=== PATIENT | female | born 1995 | race Two or more races ===

== ENCOUNTER 2024-07-14 15:40 | Emergency (ER) | payer MEDICAID, SELFPAY ==
[2024-07-14 15:41] VITALS: BMI 32.9
--- NOTE | 2024-07-14 15:47 | XR_ITS ---
Examination: CT brain head without contrast. 2-D sagittal coronal reconstructions Date and time of exam:July 14, 2024 at 1633 hours INDICATIONS: Onset posterior headaches today CTDI: vol (mGy):48.8 DLP: (mGycm):983 Technique: Multiple CT axial sections of the brain have been obtained, 5 mm slice thickness. Contrast has not been administered. 2-D sagittal, coronal reconstructions have been obtained Low dose protocols were performed. One or more of the following dose reduction techniques were used; automated exposure control, adjustment of the mA and/or KV according to patient size, use of iterative reconstruction technique. Findings: No significant ventricular enlargement. Intra-axial or extra-axial hemorrhage density is not seen. No mass effect or midline shift Basal cisterns are not remarkable. Fourth ventricle is midline. Cranial vault intact. Impression: Negative for acute hemorrhage, mass effect or midline shift Chronic maxillary sinusitis If new onset headaches persist, consider brain MRI follow-up
--- NOTE | 2024-07-14 15:47 | PD.EDRME ---
Rapid Medical Screening Exam RME Arrival date/time: 07/14/24 15:40 29-year-old female presents emergency department complaint of left-sided headache patient reports ongoing for last few days patient with history of Chiari malformation Chief Complaint: Headache Time Seen by Provider: 07/14/24 15:41
[2024-07-14 15:55] VITALS: BP 125/88; PULSE 98; RESP 18; TEMP 36.6; O2SAT 97
[2024-07-14 16:51] LABS: Basophils # (Auto) 0.1 Thou/mm3 (0.0-0.2); Basophils % (Auto) 1 % (0-2.5); Eosinophils # (Auto) 0.5 Thou/mm3 (0.0-0.5); Eosinophils % (Auto) 3 % (0-10); Hematocrit 43.4 % (36.0-46.0); Hemoglobin 14.6 g/dL (12.0-16.0); Immature Granulocytes % (Auto) 1 % (0-0); Immature Granulocytes Auto 0.09 Thou/mm3 (0.00-0.00); Lymphocytes # (Auto) 2.1 Thou/mm3 (1.0-4.8); Lymphocytes % (Auto) 11 % (10-50); Mean Corpuscular HGB Conc 33.6 g/dl (31.0-37.0); Mean Corpuscular Hemoglobin 28.4 pg (25.0-35.0); Mean Corpuscular Volume 84 fL (80-100); Monocytes # (Auto) 0.9 Thou/mm3 (0.0-0.8); Monocytes % (Auto) 4 % (0-12); Neutrophils % (Auto) 81 % (37-80); Nucleated Red Blood Cell % 0 /100 WBC (0); Platelet Count 257 Thou/mm3 (140-440); RDW Standard Deviation 38.5 fL (36.4-46.3); Red Blood Count 5.14 Miln/mm3 (4.00-5.20); White Blood Count 19.6 Thou/mm3 (3.6-11.0)
[2024-07-14 17:23] LABS: Alanine Aminotransferase 15 U/L (10-49); Albumin, Serum 4.9 gm/dL (3.5-5.0); Albumin/Globulin Ratio 1.6 (1.2-2.2); Alkaline Phosphatase 104 U/L (46-116); Anion Gap 9 (7-16); Aspartate Amino Transferase 17 U/L (0-34); BUN/Creatinine Ratio 11 Ratio (12-20); Bilirubin,Total 0.5 mg/dL (0.3-1.2); Blood Urea Nitrogen 9 mg/dL (9-23); Calcium 9.4 mg/dL (8.3-10.6); Calcium (Corrected) 9.4 mg/dL (8.5-10.1); Carbon Dioxide 22.9 mMol/L (20.0-31.0); Chloride 101 mMol/L (98-107); Creatinine (Component) 0.8 mg/dL (0.6-1.3); Estimated Creatinine Clearance 107.7 mL/min (>60); Glucose 177 mg/dL (74-106); Osmolality,Calculated 269 (275-295); Potassium 3.8 mMol/L (3.4-5.1); Sodium 133 mMol/L (136-145); Total Protein 7.9 gm/dL (5.7-8.2); eGFR > 60 See Note
[2024-07-14 17:50] LABS: HCG,Qualitative Serum Negative
[2024-07-14 21:48] VITALS: BP 146/94; PULSE 87; RESP 16; TEMP 36.5; O2SAT 97
--- NOTE | 2024-07-14 21:58 | PD.EDHA ---
ED Headache RME/HPI General Chief Complaint: Headache Stated Complaint: LEFT POSTERIOR HEADACHE Time Seen by Provider: 07/14/24 15:41 Arrival date/time: 07/14/24 15:40 Limitations: no limitations RME / HPI RME / HPI Narrative: 07/14/24 15:40 29-year-old female presents emergency department complaint of left-sided headache patient reports ongoing for last few days patient with history of Chiari malformation ----- Dr. Steele's Main ED Evaluation: 29yo female with a history of Chiari malformation, meningitis presents to the ED for a chief complaint of a left-sided headache. Patient states she started slowly forming a headache yesterday at 2200. No radiation or migration. Patient reports associated nausea, but no vomiting. She took ibuprofen without any alleviation of symptoms, so she came in for evaluation. She denies any dizziness, vision changes, lightheadedness or any other associated symptoms. No known allergies. Patient states she last saw a neurologist 5 months ago in [place]. Related Data Allergies Allergy/AdvReac Type Severity Reaction Status Date / Time No Known Allergies Allergy Verified 07/14/24 15:43 Review of Systems Review of Systems Systems Reviewed: All systems reviewed, normal except as documented Past Medical History Social History SMOKING STATUS: Never smoker ED Exam Narrative Physical exam: Patient appears in no acute distress. General Limitations: Present no limitations General appearance: Present alert and in no apparent distress Head Head exam: Present atraumatic Eye Eye exam: Present normal appearance, PERRL, EOMI and other; Absent scleral icterus or nystagmus ENT ENT exam: Present normal exam, normal oropharynx and mucous membranes moist Neck Neck exam: Present normal inspection, full ROM and trachea midline Chest Chest inspection: Present normal inspection and symmetric chest wall rise Respiratory Respiratory exam: Present normal lung sounds bilaterally Cardiovascular Cardiovascular exam: Present regular rate, normal rhythm and normal heart sounds Abdominal Exam Abdominal exam: Present soft and normal bowel sounds Extremities Exam Extremities exam: Present normal inspection and full ROM Back Exam Back exam: Present normal inspection and full ROM Neurological Exam Neurological exam: Present alert, oriented X3, CN II-XII intact and other (normal sensations) Psychiatric Psychiatric exam: Present normal affect and normal mood Skin Skin exam: Present warm, dry, intact and normal color Course Course Course Narrative: Patient offered pain medicine. Discussed risks and benefits for leaving. Quality Measures none Orders Category Date Time Status CT head/brain wo con Stat Exams 07/14/24 15:47 Completed CBC Stat Lab 07/14/24 16:41 Completed CMP [Comprehensive Metabolic Panel] Stat Lab 07/14/24 16:41 Completed HCG,Qualitative Serum Stat Lab 07/14/24 16:41 Completed Vital Signs Vital signs: Vital Signs Temperature 97.9 F 07/14/24 15:55 Pulse Rate 98 07/14/24 15:55 Respiratory Rate 18 07/14/24 15:55 Blood Pressure 125/88 H 07/14/24 15:55 Pulse Oximetry (%) 97 07/14/24 15:55 Oxygen Delivery Method Room Air 07/14/24 15:55 Pulse ox is 97% on room air, which is normal according to my interpretation. Headache MDM Narrative MDM Narrative:: Patient states she does not want to wait here for the CTA or a MRI in the morning. Risks and benefits were discussed. Alternate treatment is offered. At this time the patient decides that she patient states she will return in the morning for the MRI. Patient is signing out AGAINST MEDICAL ADVICE. Patient data External records reviewed:: [facility] previous records (Per chart review, patient has no previous ED visits or admissions to this facility.) Clinical information provided by:: patient Social determinants that could affect healthcare access:: none Patient has the following chronic illnesses:: meningitis, Chiari malformation How is presenting disease/condition affected by chronic disease/condition?: uneffected by Evaluation data The following diagnostics were reviewed and interpreted by me:: lab results and radiology exam(s) Lab and/or radiology exams considered but not ordered:: none Interpretation Summary: WBC count is elevated at 19.6, CMP is normal, HCG is negative, according to my interpretation. ----- I have personally reviewed the radiology data and agree with the radiologist's interpretation below: [facility] Report Signed Patient: AVERY LACY Record#: [id number] Birthdate: 1995 Age/Sex: 29 / F Location: [facility] Attending Dr: Ordering Physician: Gino STINSON),Shawn MEADOWS Date of Service: 07/14/24 Procedure(s): CT head/brain wo con Accession Number(s): [id number] cc: Gino STINSON),Shawn MEADOWS; Zheng Samuels MD~ Examination: CT brain head without contrast. 2-D sagittal coronal reconstructions Date and time of exam:July 14, 2024 at 1633 hours INDICATIONS: Onset posterior headaches today CTDI: vol (mGy):48.8 DLP: (mGycm):983 Technique: Multiple CT axial sections of the brain have been obtained, 5 mm slice thickness. Contrast has not been administered. 2-D sagittal, coronal reconstructions have been obtained Low dose protocols were performed. One or more of the following dose reduction techniques were used; automated exposure control, adjustment of the mA and/or KV according to patient size, use of iterative reconstruction technique. Findings: No significant ventricular enlargement. Intra-axial or extra-axial hemorrhage density is not seen. No mass effect or midline shift Basal cisterns are not remarkable. Fourth ventricle is midline. Cranial vault intact. Impression: Negative for acute hemorrhage, mass effect or midline shift Chronic maxillary sinusitis If new onset headaches persist, consider brain MRI follow-up Dictated By: Zheng Samuels MD Signed By: <Electronically signed by Zheng Samuels MD in [place]> 07/14/24 1656 Medications / Prescriptions Medications or Prescriptions considered but not ordered:: none Medication administrations:: see above, if any Consultations Consultation(s) initiated? (list below): No Diagnosis Differential diagnosis headache: migraine, tension headache, subarachnoid hemorrhage and meningitis Most likely diagnosis given after review of the tests above:: see below Admission Indicated Admission indicated?: not indicated Admission Request Was there a request for admission?: No Disposition Plan Disposition Plan: other (specify) (Patient signed out AMA.) Discharge Plan Plan Patient Disposition: Left Against Medical Advice Patient condition on transfer: Stable Prescriptions/Referrals Referrals: No Primary/Family,Physician [Primary Care Provider] - In 1 week Problem List Clinical Impression: Headache Patient/Caregiver Discharge Instructions Education Materials: Self-Care for Headaches Additional Instructions: You are leaving AGAINST MEDICAL ADVICE and you have been given strict instructions to what to return for. An MRI is been ordered please return at 8 AM. Call 911 or return immediately to the emergency department for worsening symptoms, or any other concerns. Print Language: German
== END 2024-07-14 23:33 | disposition left against medical advice (07) ==
PROVIDERS: Nurse Practitioner Primary Care; Emergency Provider Emergency Medicine
DX: R51.9 Headache, unspecified (principal)
CPT/HCPCS: 36415; 70450; 80053; 84703; 85025; 99284